=== PATIENT | male | born 1945 | race Caucasian/White ===

== ENCOUNTER → 2017-01-21 | Outpatient (CLI) | payer MEDICARE, OTHER ==
[~2017-01-21] MED LIST: NO HOME MEDICATIONS; NORCO 325 MG-51 TAB PO; PREDNISONE20 MG PO; PROTONIX 40MG T40 MG PO
== END ==
LOC: COL.RAD 08:11
DX: Z13.6 Encounter for screening for cardiovascular disorders (principal); Z87.891 Personal history of nicotine dependence

== ENCOUNTER → 2017-01-24 | Outpatient (CLI) | payer MEDICARE, OTHER ==
[2017-01-24 15:59] LABS: HIV 1/2 Antibodies Non-Reactive; HIV-1p24 Antigen Non-Reactive
== END ==
LOC: COL.LAB 14:10
PROVIDERS: Orthopaedic Surgery
DX: Z01.812 Encounter for preprocedural laboratory examination (principal); M17.12 Unilateral primary osteoarthritis, left knee

== ENCOUNTER → 2017-03-11 | Outpatient (CLI) | payer MEDICARE, OTHER | LOC: COL.VAS 12:41 | DX: M71.22 Synovial cyst of popliteal space [Baker], left knee (principal); Z96.652 Presence of left artificial knee joint ==

== ENCOUNTER → 2017-03-14 | Outpatient (CLI) | payer MEDICARE, OTHER ==
[2017-03-14 10:44] LABS: HIV 1/2 Antibodies Non-Reactive; HIV-1p24 Antigen Non-Reactive
== END ==
LOC: COL.LAB 08:42
PROVIDERS: Orthopaedic Surgery
DX: Z01.818 Encounter for other preprocedural examination (principal); M17.11 Unilateral primary osteoarthritis, right knee

== ENCOUNTER 2019-02-10 21:07 | Inpatient (IN) | payer MEDICARE, OTHER ==
[~2019-02-10] VITALS: Ht 175.3 cm; Wt 79.5 kg
[2019-02-10 21:34] LABS: ALBUMIN 4.4 gm/dL (3.5-5.0); BILIRUBIN,TOTAL 1.1 mg/dL (0.0-1.0); CALCIUM 9.3 mg/dL (8.4-10.2); CREATININE, serum 1.21 (0.66-1.25); POTASSIUM 3.9 mmol/L (3.4-5.0); PROTHROMBIN TIME 11.8 SECONDS (9.7-12.8); TOTAL PROTEIN 7.7 gm/dL (6.4-8.2)
[2019-02-10 21:37] LABS: PARTIAL THROMBOPLASTIN TIME 27.3 SECONDS (26.0-37.0)
[2019-02-10 21:38] LABS: BASO % 0.5 % (0.0-2.0); EOS # 0.4 (0.0-0.7); EOS % 4.9 % (0-4.0); GRAN # 3.8 (1.4-6.5); GRAN % 49.3 % (42.2-75.2); HEMATOCRIT 46.9 % (42.0-52.0); HEMOGLOBIN 15.7 g/dl (13.5-18.0); LYMPH # 2.6 (1.2-3.4); LYMPH % 33.6 % (20.0-51.0); MEAN CELL VOLUME 97 fl (80.0-100.0); MEAN CORPUSCULAR HEMOGLOBIN 32 pg (27.0-31.0); MEAN CORPUSCULAR HGB CONC 34 g/dl (33.0-37.0); MEAN PLATELET VOLUME 9.5 fl (7.4-10.4); MONO # 0.9 (0.1-0.6); MONO % 11.4 % (1.7-9.3); PLATELET COUNT 217 K/mm3 (130-400); RED BLOOD COUNT 4.84 M/mm3 (4.20-5.60); REDCELL DISTRIBUTION WIDTH-CV 13.7 % (11.5-14.5)
[2019-02-10 21:56] LABS: TROPONIN-I 0.116 ng/mL (0.000-0.035)
[2019-02-11] VITALS (513 sets, daily range): BP systolic 107–144; BP diastolic 60–86; PULSE 49–71; TEMP 97.5–98; O2SAT 87–100
--- NOTE | 2019-02-11 07:30 | NUR ---
Bedside report received from NARCISO Peterson.
--- NOTE | 2019-02-11 07:50 | NUR ---
Assessment completed. Pt sitting in bed, watching tv. No complaints at this time. Denies any chest pain. States he would like to go home today. Discussed plan of care r/t NPO status and waiting for Dr Cedillo to see him for possible heart catherization today. Pt verbalized understanding. Call light in reach.
--- NOTE | 2019-02-11 08:43 | NUR ---
NARCISO Quezada with Dr Cedillo at bedside discussing plan of care r/t left heart catherization today.
--- NOTE | 2019-02-11 11:36 | NUR ---
Pt taken to coreroom foundry laborer by [facility] optical laboratory mechanic RN, via bed. Pt denies any CP at this time. with pt and will stay in coreroom foundry laborer waiting area.
--- NOTE | 2019-02-11 11:48 | NUR ---
SEE MERGE REPORT FOR MEDICATION ADMINISTRATION TIMES WELL INTRA/POST PROCEDURAL SEDATION ASSESSMENTS.
--- NOTE | 2019-02-11 13:05 | NUR ---
Report received from Shaheen quality lab technician RN at 1251. Pt arrived back to ICU bed 3 from quality lab technician via bed at 1305. Pt A/Ox4. Denies any pain at this time. HOB flat, right femoral dressing c/d/i, area soft. Discussed plan of care with pt and pt's r/t flat time and post cardiac cath checks. Angiomax still infusing at 30ml/hr until 1415 through right FA PIV. Will monitor.
--- NOTE | 2019-02-11 14:08 | NUR ---
CLEMENTE student met with patient to discuss discharge plan. Patient lives with his (Diana) in [place]. Patient's PCP is Dr. Eagle Padilla and he receives his medications from [facility]. Patient does not use any assistive devices and is independent with ADLs. Patient's DPOA-HC is in his chart and it designates his . Patient plans to return home with his upon discharge. No identified needs at this time.
--- NOTE | 2019-02-11 14:20 | NUR ---
Angiomax dc'd per MD orders. right femoral dressing c/d/i, area soft. Pt denies any CP. VSS. Call light in reach.
--- NOTE | 2019-02-11 16:20 | NUR ---
HOB up to 30 degrees. right femoral dressing remains c/d/i, area soft. VSS. Pt tolerating sips of water. Ordering early dinner at this time. Call light in reach.
--- NOTE | 2019-02-11 16:50 | NUR ---
Pt's talking with and friend at bedside. no complaints at this time. VSS. Call light in reach.
--- NOTE | 2019-02-11 19:29 | NUR ---
Bedside report given to NARCISO Peterson.
--- NOTE | 2019-02-11 20:00 | NUR ---
PT HAS MARY DESCRIBED ACHEY RATING 1/10; DR MOLINA IN ROOM AND ACKNOWLEDGED. PT DENIES CP. PT IN GOOD SPIRITS. PT BROUGHT FRESH CUP OF WATER.
[2019-02-12] VITALS (421 sets, daily range): BP systolic 115–128; BP diastolic 74–87; PULSE 51–59; TEMP 98.1; O2SAT 84–98
[2019-02-12 06:11] LABS: BASO % 0.4 % (0.0-2.0); EOS # 0.3 (0.0-0.7); EOS % 2.9 % (0-4.0); GRAN # 6.3 (1.4-6.5); GRAN % 67.7 % (42.2-75.2); HEMATOCRIT 45.8 % (42.0-52.0); HEMOGLOBIN 15.2 g/dl (13.5-18.0); LYMPH # 1.7 (1.2-3.4); LYMPH % 18.3 % (20.0-51.0); MEAN CELL VOLUME 97 fl (80.0-100.0); MEAN CORPUSCULAR HEMOGLOBIN 32 pg (27.0-31.0); MEAN CORPUSCULAR HGB CONC 33 g/dl (33.0-37.0); MEAN PLATELET VOLUME 9.4 fl (7.4-10.4); MONO % 10.4 % (1.7-9.3); PLATELET COUNT 211 K/mm3 (130-400); RED BLOOD COUNT 4.74 M/mm3 (4.20-5.60)
[2019-02-12 06:28] LABS: CALCIUM 8.9 mg/dL (8.4-10.2); CREATININE, serum 1.11 (0.66-1.25); POTASSIUM 4.5 mmol/L (3.4-5.0)
--- NOTE | 2019-02-12 07:15 | NUR ---
Bedside report recieved from Kristen STUART. Patient alert and awake in bed. Right groin dressing CDI, scant drainage that RN states is unchanged. Denies needs at this time. Denies pain.
[2019-02-12] MEDS ORDERED: LIPITOR 80MG80 MG PO (08:23)
[2019-02-12] MEDS ORDERED: ASPIRIN E.C. 8181 MG PO (08:23)
[2019-02-12] MEDS ORDERED: PLAVIX 75MG TAB75 MG PO (08:23)
[2019-02-12] MEDS ORDERED: TOPROL XL 25MG25 MG PO (08:23)
--- NOTE | 2019-02-12 10:30 | NUR ---
Discharge instructions and new home medications reviewed. Card cath discharge instructions reviewed and states understanding. also at bedside for teaching.
--- NOTE | 2019-02-12 10:40 | NUR ---
Ambulatory to POV and discharged to home with driving.
== END 2019-02-12 10:40 | disposition home or self-care (01) | DRG 247 ==
LOC: COL.ER 21:07 → ICU 22:17 → IMCU 02-12 10:56
PROVIDERS: Family Medicine; ADMIT Internal Medicine Interventional Cardiology
PROC: 027135Z Dilation of Coronary Artery, Two Arteries with Two Drug-eluting Intraluminal Devices, Percutaneous Approach (ICD-10-PCS; principal; 2019-02-11)
PROC: B2111ZZ Fluoroscopy of Multiple Coronary Arteries using Low Osmolar Contrast (ICD-10-PCS; 2019-02-11)
DX: I21.4 Non-ST elevation (NSTEMI) myocardial infarction (principal); R00.1 Bradycardia, unspecified; T46.3X5A Adverse effect of coronary vasodilators, initial encounter; I95.2 Hypotension due to drugs; I25.10 Atherosclerotic heart disease of native coronary artery without angina pectoris; Z66 Do not resuscitate
CPT/HCPCS: C9600; J0583; J1644; J2250; J3010; J7030; Q9967

== ENCOUNTER 2019-10-30 14:15 | Outpatient (RCR) | payer MEDICARE, OTHER ==
[~2019-10-30 14:15] MED LIST changes: +ASPIRIN E.C. 8181 MG PO; +LIPITOR 80MG80 MG PO; +PLAVIX 75MG TAB75 MG PO; +TOPROL XL 25MG25 MG PO
== END 2019-11-01 | disposition home or self-care (01) ==
LOC: COL.CR
DX: I21.4 Non-ST elevation (NSTEMI) myocardial infarction (principal)

== ENCOUNTER 2019-11-18 13:12 | Outpatient (RCR) | payer MEDICARE, OTHER | END 2019-12-09 06:00 | disposition home or self-care (01) | LOC: COL.CR 13:12 | DX: Z48.812 Encounter for surgical aftercare following surgery on the circulatory system (principal); I25.2 Old myocardial infarction ==

== ENCOUNTER → 2020-07-18 | Outpatient (CLI) | payer MEDICARE, OTHER | LOC: ZCOL.LAB 16:14 | DX: U07.1 COVID-19 (principal) ==

== ENCOUNTER 2020-07-22 12:10 | Emergency (ER) | payer MEDICARE, OTHER ==
[~2020-07-22] VITALS: Ht 175.3 cm; Wt 84.1 kg
[2020-07-22 12:47] VITALS: TEMP 98.9
[2020-07-22 13:26] LABS: BASO % 0.1 % (0.0-2.0); EOS # 0.1 (0.0-0.7); EOS % 1.1 % (0-4.0); GRAN # 4.9 (1.4-6.5); GRAN % 66.6 % (42.2-75.2); HEMATOCRIT 43.6 % (42.0-52.0); HEMOGLOBIN 15.1 g/dl (13.5-18.0); LYMPH # 1.4 (1.2-3.4); LYMPH % 19.4 % (20.0-51.0); MEAN CELL VOLUME 93 fl (80.0-100.0); MEAN CORPUSCULAR HEMOGLOBIN 32 pg (27.0-31.0); MEAN CORPUSCULAR HGB CONC 35 g/dl (33.0-37.0); MEAN PLATELET VOLUME 10.4 fl (7.4-10.4); MONO # 0.9 (0.1-0.6); MONO % 12.3 % (1.7-9.3); PLATELET COUNT 197 K/mm3 (130-400); RED BLOOD COUNT 4.71 M/mm3 (4.20-5.60); REDCELL DISTRIBUTION WIDTH-CV 13.4 % (11.5-14.5)
[2020-07-22 13:29] LABS: INR 1.1 (0.8-3.0); PROTHROMBIN TIME 12.5 SECONDS (9.7-12.8)
[2020-07-22 13:34] LABS: ALANINE AMINOTRANSFERASE 33 U/L (4-49); ALKALINE PHOSPHATASE 75 U/L (50-136); ANION GAP 9 mmol/L (7-16); AST,SGOT 40 U/L (15-37); BILIRUBIN,TOTAL 1.5 mg/dL (0.0-1.0); BLOOD UREA NITROGEN 10 mg/dL (9-20); CALCIUM 8.7 mg/dL (8.4-10.2); CARBON DIOXIDE 27 mmol/L (22-30); CHLORIDE 93 mmol/L (98-107); CREATININE, serum 0.84 (0.66-1.25); GLUCOSE 122 mg/dL (74-106); POTASSIUM 4.2 mmol/L (3.4-5.0); SODIUM 129 mmol/L (137-145); TOTAL PROTEIN 7.2 gm/dL (6.4-8.2)
[2020-07-22 13:46] LABS: TROPONIN-I < 0.012 ng/mL (0.000-0.035)
[2020-07-22] MEDS ORDERED: ZITHROMAX Z PA250 MG PO (13:53)
[2020-07-22] MEDS ORDERED: THE MEDICINE S200 M2 PO (14:15)
[2020-07-22] MEDS ORDERED: MASON NATURAL1200 MG PO (14:16)
[2020-07-22 15:12] VITALS: BP 131/116; PULSE 68
== END 2020-07-22 15:15 | disposition home or self-care (01) ==
LOC: COL.ER 12:10
PROVIDERS: Emergency Medicine
DX: U07.1 COVID-19 (principal); J12.89 Other viral pneumonia; I25.10 Atherosclerotic heart disease of native coronary artery without angina pectoris; Z79.82 Long term (current) use of aspirin; Z95.5 Presence of coronary angioplasty implant and graft; Z95.9 Presence of cardiac and vascular implant and graft, unspecified; Z88.8 Allergy status to other drugs, medicaments and biological substances
CPT/HCPCS: J1100; J7030

== ENCOUNTER 2023-08-02 19:05 | Emergency (ER) | payer MEDICARE, OTHER ==
[~2023-08-02] VITALS: Ht 177.8 cm; Wt 88.2 kg
[~2023-08-02 19:05] MED LIST changes: +EPIPEN 2-PAK1 MG/ML IM; +MASON NATURAL1200 MG PO; +THE MEDICINE S200 M2 PO; +ZITHROMAX Z PA250 MG PO
[2023-08-02 19:11] VITALS: BP 134/81; TEMP 97.5
[2023-08-02 19:47] VITALS: PULSE 71
== END 2023-08-02 19:47 | disposition home or self-care (01) ==
LOC: COL.ER 19:05
DX: L50.9 Urticaria, unspecified (principal)
CPT/HCPCS: J8540